=== PATIENT | female | born 1995 | race African-American/Black ===

== ENCOUNTER 2018-10-13 15:25 | Emergency (ER) | payer MEDICAID, OTHER ==
--- NOTE | 2018-10-13 17:34 | ER Document Report ---
ED Medical Screen (RME) - General Chief Complaint: Abscess Stated Complaint: ABSCESS Time Seen by Provider: 10/13/18 17:31 Primary Care Provider: MATTHEW ELLSWORTH MD [Primary Care Provider] - Follow up as needed Mode of Arrival: Ambulatory Information source: Patient Notes: Patient is an otherwise healthy 23-year-old female who presents to the emergency department with complaints of a possible pilonidal cyst. Patient denies history of same. Patient reports this is been present for approximately 2 days, denies any drainage or fever. Patient does not have a history of MRSA. Exam: Area of erythema and induration noted at top of buttocks. I have greeted and performed a rapid initial assessment of this patient. A comprehensive ED assessment and evaluation of the patient, analysis of test results and completion of the medical decision making process will be conducted by additional ED providers. Dictation of this chart was performed using voice recognition software; therefore, there may be some unintended grammatical errors. TRAVEL OUTSIDE OF THE [place] IN LAST 30 DAYS: No - Related Data Allergies/Adverse Reactions: No Known Allergies Allergy (Unverified 11/24/14 15:54) Physical Exam - Vital signs Vitals: Temp Pulse Resp BP Pulse Ox 99.0 F 85 14 126/69 H 98 10/13/18 15:40 10/13/18 15:40 10/13/18 15:40 10/13/18 15:40 10/13/18 15:40 Course - Vital Signs Vital signs: Temp Pulse Resp BP Pulse Ox 99.0 F 85 14 126/69 H 98 10/13/18 15:40 10/13/18 15:40 10/13/18 15:40 10/13/18 15:40 10/13/18 15:40 Doctor's Discharge - Discharge Referrals: MATTHEW ELLSWORTH MD [Primary Care Provider] - Follow up as needed
--- NOTE | 2018-10-13 20:19 | ER Document Report ---
ED General - General Chief Complaint: Abscess Stated Complaint: ABSCESS Time Seen by Provider: 10/13/18 17:31 Primary Care Provider: MATTHEW ELLSWORTH MD [ACTIVE STAFF] - Follow up as needed Mode of Arrival: Ambulatory Notes: 23-year-old female who presents to the emergency department with complaints of a possible pilonidal cyst. Patient denies history of same. Patient reports this is been present for approximately 2 days, denies any drainage or fever. Patient does not have a history of MRSA. TRAVEL OUTSIDE OF THE [place] IN LAST 30 DAYS: No - Related Data Allergies/Adverse Reactions: No Known Allergies Allergy (Unverified 11/24/14 15:54) Past Medical History - General Information source: Patient - Social History Smoking Status: Never Smoker Chew tobacco use (# tins/day): No Frequency of alcohol use: None Drug Abuse: None Family History: Reviewed & Not Pertinent Patient has suicidal ideation: No Patient has homicidal ideation: No Renal/ Medical History: Denies: Hx Peritoneal Dialysis Review of Systems - Review of Systems Constitutional: See HPI EENT: No symptoms reported Cardiovascular: No symptoms reported Respiratory: No symptoms reported Gastrointestinal: No symptoms reported Genitourinary: No symptoms reported Female Genitourinary: No symptoms reported Musculoskeletal: No symptoms reported Skin: No symptoms reported Hematologic/Lymphatic: No symptoms reported Neurological/Psychological: No symptoms reported Physical Exam - Vital signs Vitals: Temp Pulse Resp BP Pulse Ox 99.0 F 85 14 126/69 H 98 10/13/18 15:40 10/13/18 15:40 10/13/18 15:40 10/13/18 15:40 10/13/18 15:40 - Notes Notes: PHYSICAL EXAMINATION: Reviewed vital signs and charting by RN GENERAL: Alert, interacts well. No acute distress. HEAD: Normocephalic, atraumatic. EYES: Pupils equal and round. Extraocular movements intact. EXTREMITIES: Moves all 4 extremities spontaneously. No edema, No cyanosis. Normal distal neurovascular exam BACK: Area of erythema at the gluteal crest with induration and tenderness to palpation, no area of fluctuance noted NEUROLOGIC: Oriented and appropriate. Normal speech. PSYCH: Normal affect, normal mood. SKIN: Warm, dry, normal turgor. No rashes or lesions noted. Course - Re-evaluation Re-evalutation: 10/13/18 20:17 Overall well-appearing presentation consistent with a pilonidal cyst. Ultrasound used at bedside and fluid pocket seen with no evidence of blood flow on color mode. Incision and drainage performed with moderate amount of purulent discharge expressed, patient tolerated procedure well. - Vital Signs Vital signs: Temp Pulse Resp BP Pulse Ox 99.0 F 85 14 126/69 H 98 10/13/18 15:40 10/13/18 15:40 10/13/18 15:40 10/13/18 15:40 10/13/18 15:40 Procedures - Incision and Drainage Medial Buttock Type: Simple Anesthetic type: 1% Lidocaine mL's of anesthetic: 5 Blade size: 11 I&D procedure: Betadine prep applied Incision Method: Incision made by scalpel Discharge - Discharge Clinical Impression: Pilonidal abscess Condition: Good Disposition: HOME, SELF-CARE Additional Instructions: You were seen for an abscess that required drainage. Please clean this area with soap and water twice daily and apply a topical antibiotic. Dress the area after each cleaning. Please return if you develop fever, vomiting, the pain at the site worsens, you notice spreading redness from the area, or you have any other symptoms that are concerning to you. Forms: Return to Work Referrals: MATTHEW ELLSWORTH MD [ACTIVE STAFF] - Follow up as needed
[2018-10-13 20:24] VITALS: BP 134/96
== END 2018-10-13 20:32 | disposition home or self-care (01) ==
LOC: ER 15:25
DX: L05.01 Pilonidal cyst with abscess (principal)
CPT/HCPCS: 99283